=== PATIENT | male | born 1955 | race Caucasian/White ===

== ENCOUNTER → 2016-09-14 | Outpatient (CLI) | payer OTHER ==
[~2016-09-14] MED LIST: ACID REDUCER C1 EACH PO; ALBUTEROL0.09 MG/A2 INH; ALLOPURINOL300 MG PO; ASPIR LOW81 MG PO; BACTRIM DS 8001 TA1 PO; COUMADIN5 M1 PO; EC NAPROSYN500 MG PO; FERROUS SULFAT325 MG PO; FISH OIL500 MG PO; HYDROCODONE BIT1 T11 PO; IBUPROFEN800 MG PO; JANTOVEN5 MG PO; JANTOVEN6 M1 PO; LEVOFLOXACIN500 MG PO; LIPITOR10 MG PO; LISINOPRIL/HCTZ1 TA4 PO; LISINOPRIL10 M1 PO; METFORMIN HCL1000 MG PO; NATURE'S BLEND F1 MG PO; NEURONTIN300 MG PO; SIMVASTATIN40 MG PO; TRAD5TAB1 PO; VIBRAMYCIN100 MG PO; VICODIN 5-3001 EACH PO; VITAMIN B121000 MC2 PO; ZESTRIL10 MG PO; ZOFRAN ODT4 MG SL; ZYRTEC10 MG PO
== END | disposition home or self-care (01) ==
LOC: RAD 08:59
DX: M25.551 Pain in right hip (principal)

== ENCOUNTER → 2016-09-26 | Outpatient (CLI) | payer OTHER | END | disposition home or self-care (01) | LOC: CT 09:49 | DX: K57.30 Diverticulosis of large intestine without perforation or abscess without bleeding (principal); M12.88 Other specific arthropathies, not elsewhere classified, other specified site; M51.36 Other intervertebral disc degeneration, lumbar region; M47.896 Other spondylosis, lumbar region; Z96.642 Presence of left artificial hip joint; K42.9 Umbilical hernia without obstruction or gangrene ==

== ENCOUNTER → 2017-02-09 | Outpatient (CLI) | payer OTHER | END | disposition home or self-care (01) | LOC: CARD 12:43 | DX: R01.1 Cardiac murmur, unspecified (principal) ==

== ENCOUNTER → 2019-12-03 | Outpatient (CLI) | payer MEDICARE ==
[~2019-12-03] MED LIST changes: +CEFTRIAXONE2 GM IV; +LIPITOR20 MG PO; +MAPAP ARTHRITI650 MG PO; -METFORMIN HCL1000 MG PO; +METFORMIN HCL500 M3 PO; +MONTELUKAST SOD10 MG PO; +NIACIN TIME RE500 MG PO; +VANCO 1.751.75 GM/25 IV
== END | disposition home or self-care (01) ==
LOC: LAB 07:43
DX: S99.922A Unspecified injury of left foot, initial encounter (principal); X58.XXXA Exposure to other specified factors, initial encounter; Y93.89 Activity, other specified; Y92.89 Other specified places as the place of occurrence of the external cause; Y99.8 Other external cause status

== ENCOUNTER → 2019-12-04 | Outpatient (CLI) | payer MEDICARE | END | disposition home or self-care (01) | LOC: RAD 09:12 | DX: S99.922A Unspecified injury of left foot, initial encounter (principal); X58.XXXA Exposure to other specified factors, initial encounter; Y93.89 Activity, other specified; Y92.89 Other specified places as the place of occurrence of the external cause; Y99.8 Other external cause status ==

== ENCOUNTER → 2019-12-09 | Outpatient (CLI) | payer MEDICARE | END | disposition home or self-care (01) | LOC: US 08:21 | DX: I73.9 Peripheral vascular disease, unspecified (principal); I10 Essential (primary) hypertension; M79.606 Pain in leg, unspecified ==

== ENCOUNTER 2019-12-15 03:02 | Inpatient (IN) | payer MEDICARE ==
[~2019-12-15] VITALS: Ht 187.9 cm; Wt 111.7 kg
[~2019-12-15 03:02] MED LIST changes: -CEFTRIAXONE2 GM IV; -LIPITOR20 MG PO; -MAPAP ARTHRITI650 MG PO; -MONTELUKAST SOD10 MG PO; -NIACIN TIME RE500 MG PO; -VANCO 1.751.75 GM/25 IV
[2019-12-15 03:14] VITALS: BP 141/84
[2019-12-15 04:49] LABS: BASO # 0.1 10*3/uL (0.0-0.1); BASO % 0.6 % (0.0-1.0); EOS # 0.1 10*3/uL (0.0-0.4); EOS % 1.2 % (1.0-4.0); LYMPH % 12.2 % (27.0-41.0); MEAN CELL VOLUME 104.5 fl (80.0-94.0); MEAN CORPUSCULAR HGB 34.3 pg (27.0-31.0); MEAN CORPUSCULAR HGB CONC 32.9 g/dl (33.0-37.0); MEAN PLATELET VOLUME 8.2 fl (9.6-12.3); MONO # 0.9 10*3/uL (0.1-1.0); MONO % 10.5 % (3.0-9.0); NEUT # 6.2 10*3/uL (2.3-7.9); PLATELET COUNT AUTOMATED 240 10*3/uL (130-400); RED BLOOD COUNT 3.35 10*6/uL (4.50-5.90); RED CELL DISTRI WIDTH 12.6 % (0-14.5); WHITE BLOOD COUNT 8.3 10*3/uL (4.8-10.8)
[2019-12-15 04:59] LABS: ACT PARTIAL THROMBO TIME 47.1 SECONDS (20.0-32.1); INTERNATIONAL NORM RATIO 2.4 (2.0-3.5)
[2019-12-15 05:06] LABS: ALBUMIN 3.6 gm/dl (3.1-4.5); ALKALINE PHOSPHATASE 53 U/L (45-117); BUN 22 mg/dl (7-24); CHLORIDE 108 mmol/L (98-107); CREATININE 1.18 mg/dL (0.70-1.30); LIPASE 104 U/L (73-393); POTASSIUM 4.2 mmol/L (3.5-5.1); SGOT/AST 14 IU/L (3-35); SGPT/ALT 21 U/L (12-78); SODIUM 138 mmol/L (136-145); TROPONIN I < 0.015 ng/ml (<0.045)
[2019-12-15 05:47] LABS: BILIRUBIN NEGATIVE (NEGATIVE); BLOOD NEGATIVE (NEGATIVE); CLARITY CLEAR (CLEAR); COLOR YELLOW (YELLOW); GLUCOSE NEGATIVE (NEGATIVE); KETONE NEGATIVE (NEGATIVE); LEUKO ESTERASE NEGATIVE (NEGATIVE); NITRITE NEGATIVE (NEGATIVE); SPECIFIC GRAVITY 1.025 (1.005-1.030); UROBILINOGEN 0.2 E.U./dl (0.2-1.0); WBC 0-2 wbc/hpf (0-5)
[2019-12-15 06:15] VITALS: BP 140/82
[2019-12-15 08:00] VITALS: BP 146/82
[2019-12-15] MEDS ORDERED: MONTELUKAST SOD10 MG PO (11:28)
[2019-12-15] MEDS ORDERED: LIPITOR20 MG PO (11:29)
[2019-12-15] MEDS ORDERED: MAPAP ARTHRITI650 MG PO (11:31)
[2019-12-15] MEDS ORDERED: NIACIN TIME RE500 MG PO (11:49)
[2019-12-15 12:00] VITALS: BP 165/63
[2019-12-15 16:00] VITALS: BP 151/69
[2019-12-15 20:00] VITALS: BP 140/77
[2019-12-16] VITALS (9 sets, daily range): BP systolic 124–154; BP diastolic 60–82
[2019-12-16 07:02] LABS: BASO % 0.5 % (0.0-1.0); EOS # 0.1 10*3/uL (0.0-0.4); EOS % 2.3 % (1.0-4.0); HEMATOCRIT 33.2 % (42.0-52.0); LYMPH # 1.2 10*3/uL (1.3-4.4); LYMPH % 18.8 % (27.0-41.0); MEAN CELL VOLUME 101.8 fl (80.0-94.0); MEAN CORPUSCULAR HGB 33.7 pg (27.0-31.0); MEAN CORPUSCULAR HGB CONC 33.1 g/dl (33.0-37.0); MEAN PLATELET VOLUME 8.7 fl (9.6-12.3); MONO # 0.9 10*3/uL (0.1-1.0); MONO % 14.5 % (3.0-9.0); NEUT % 63.6 % (47.0-73.0); PLATELET COUNT AUTOMATED 228 10*3/uL (130-400); RED BLOOD COUNT 3.26 10*6/uL (4.50-5.90); RED CELL DISTRI WIDTH 12.2 % (0-14.5); WHITE BLOOD COUNT 6.2 10*3/uL (4.8-10.8)
[2019-12-16 07:32] LABS: ALBUMIN 3.2 gm/dl (3.1-4.5); ALKALINE PHOSPHATASE 48 U/L (45-117); BUN 17 mg/dl (7-24); CHLORIDE 110 mmol/L (98-107); CHOLESTEROL 85 mg/dL (<200); CREATININE 1.11 mg/dL (0.70-1.30); HDL CHOLESTEROL 38 mg/dl (40-60); LDL CHOLESTEROL 26 mg/dL (9-159); SGOT/AST 11 IU/L (3-35); SGPT/ALT 17 U/L (12-78); SODIUM 140 mmol/L (136-145); TOTAL PROTEIN 7.4 gm/dL (6.4-8.2); TRIGLYCERIDES 106 mg/dl (<150); VLDL CHOLESTEROL 21 mg/dL (6-40)
[2019-12-17] VITALS: BP 129/68
[2019-12-17 08:00] VITALS: BP 156/86
[2019-12-17 08:32] LABS: BASO % 0.6 % (0.0-1.0); EOS # 0.1 10*3/uL (0.0-0.4); EOS % 1.7 % (1.0-4.0); HEMATOCRIT 31.4 % (42.0-52.0); LYMPH # 1.1 10*3/uL (1.3-4.4); LYMPH % 14.6 % (27.0-41.0); MEAN CELL VOLUME 102.3 fl (80.0-94.0); MEAN CORPUSCULAR HGB 34.2 pg (27.0-31.0); MEAN CORPUSCULAR HGB CONC 33.4 g/dl (33.0-37.0); MEAN PLATELET VOLUME 8.7 fl (9.6-12.3); MONO # 0.9 10*3/uL (0.1-1.0); NEUT # 5.1 10*3/uL (2.3-7.9); NEUT % 70.8 % (47.0-73.0); PLATELET COUNT AUTOMATED 220 10*3/uL (130-400); RED BLOOD COUNT 3.07 10*6/uL (4.50-5.90); RED CELL DISTRI WIDTH 12.1 % (0-14.5); WHITE BLOOD COUNT 7.2 10*3/uL (4.8-10.8)
[2019-12-17 08:44] LABS: INTERNATIONAL NORM RATIO 2.3 (2.0-3.5)
[2019-12-17 08:47] LABS: ALKALINE PHOSPHATASE 44 U/L (45-117); BUN 14 mg/dl (7-24); CHLORIDE 108 mmol/L (98-107); CREATININE 0.92 mg/dL (0.70-1.30); POTASSIUM 3.7 mmol/L (3.5-5.1); SGOT/AST 7 IU/L (3-35); SGPT/ALT 16 U/L (12-78); SODIUM 138 mmol/L (136-145); TOTAL PROTEIN 7.4 gm/dL (6.4-8.2)
[2019-12-17 12:00] VITALS: BP 168/62
[2019-12-17 12:11] LABS: ACID FAST SPEC PROCESSING Tissue Grinding (.)
[2019-12-17 16:00] VITALS: BP 135/74
[2019-12-17 20:00] VITALS: BP 147/79
[2019-12-18] VITALS: BP 149/78
[2019-12-18 07:03] LABS: INTERNATIONAL NORM RATIO 2.2 (2.0-3.5)
[2019-12-18 08:00] VITALS: BP 146/78
[2019-12-18 12:00] VITALS: BP 140/72
[2019-12-18 16:00] VITALS: BP 143/51
[2019-12-18 20:00] VITALS: BP 110/71
[2019-12-19] VITALS: BP 130/49
[2019-12-19 06:26] LABS: BASO % 0.5 % (0.0-1.0); EOS # 0.2 10*3/uL (0.0-0.4); HEMATOCRIT 29.8 % (42.0-52.0); LYMPH # 1.2 10*3/uL (1.3-4.4); LYMPH % 15.5 % (27.0-41.0); MEAN CORPUSCULAR HGB 33.7 pg (27.0-31.0); MEAN CORPUSCULAR HGB CONC 34.2 g/dl (33.0-37.0); MEAN PLATELET VOLUME 8.9 fl (9.6-12.3); MONO # 0.8 10*3/uL (0.1-1.0); MONO % 9.9 % (3.0-9.0); NEUT # 5.4 10*3/uL (2.3-7.9); NEUT % 71.8 % (47.0-73.0); PLATELET COUNT AUTOMATED 242 10*3/uL (130-400); RED BLOOD COUNT 3.03 10*6/uL (4.50-5.90); RED CELL DISTRI WIDTH 11.8 % (0-14.5); WHITE BLOOD COUNT 7.5 10*3/uL (4.8-10.8)
[2019-12-19 06:27] LABS: INTERNATIONAL NORM RATIO 2.1 (2.0-3.5)
[2019-12-19 06:30] LABS: ALBUMIN 2.7 gm/dl (3.1-4.5); ALKALINE PHOSPHATASE 42 U/L (45-117); BUN 15 mg/dl (7-24); CHLORIDE 105 mmol/L (98-107); CREATININE 0.96 mg/dL (0.70-1.30); MEAN CELL VOLUME 98.3 fl (80.0-94.0); POTASSIUM 3.9 mmol/L (3.5-5.1); SGOT/AST 16 IU/L (3-35); SGPT/ALT 18 U/L (12-78); SODIUM 137 mmol/L (136-145); TOTAL PROTEIN 7.2 gm/dL (6.4-8.2)
[2019-12-19 08:00] VITALS: BP 130/83
[2019-12-19 12:00] VITALS: BP 118/88
[2019-12-19] MEDS ORDERED: CEFTRIAXONE2 GM IV (12:03)
[2019-12-19 16:00] VITALS: BP 192/82
[2019-12-19 20:00] VITALS: BP 145/86
[2019-12-20] VITALS: BP 122/69
[2019-12-20 06:58] LABS: INTERNATIONAL NORM RATIO 1.8 (2.0-3.5)
[2019-12-20 08:00] VITALS: BP 128/75
[2019-12-20] MEDS ORDERED: VANCO 1.751.75 GM/25 IV (11:24)
[2019-12-20 12:00] VITALS: BP 139/81
[2019-12-20 16:00] VITALS: BP 125/77
[2019-12-20 20:00] VITALS: BP 135/81
[2019-12-21] VITALS: BP 140/74
[2019-12-21 08:00] VITALS: BP 150/98
[2019-12-21 10:19] LABS: INTERNATIONAL NORM RATIO 1.9 (2.0-3.5)
== END 2019-12-21 12:40 | disposition other institution (70) | DRG 617 ==
LOC: ED 03:02 → EDHOLD 06:15 → 5E 06:15
PROVIDERS: Emergency Medicine Emergency Medical Services; Podiatrist Foot & Ankle Surgery; Registered Nurse; Student in an Organized Health Care Education/Training Program; ADMIT Internal Medicine
PROC: 0Y6S0Z3 Detachment at Left 2nd Toe, Low, Open Approach (ICD-10-PCS; principal; 2019-12-16)
PROC: 0HRMXK3 Replacement of Right Foot Skin with Nonautologous Tissue Substitute, Full Thickness, External Approach (ICD-10-PCS; principal; 2019-12-16)
PROC: 0JBQ0ZZ Excision of Right Foot Subcutaneous Tissue and Fascia, Open Approach (ICD-10-PCS; principal; 2019-12-16)
PROC: 02HV33Z Insertion of Infusion Device into Superior Vena Cava, Percutaneous Approach (ICD-10-PCS; 2019-12-19)
PROC: B548ZZA Ultrasonography of Superior Vena Cava, Guidance (ICD-10-PCS; 2019-12-19)
DX: E11.69 Type 2 diabetes mellitus with other specified complication (principal); D68.59 Other primary thrombophilia; M86.172 Other acute osteomyelitis, left ankle and foot; E44.0 Moderate protein-calorie malnutrition; R78.81 Bacteremia; E11.621 Type 2 diabetes mellitus with foot ulcer; I10 Essential (primary) hypertension; D53.9 Nutritional anemia, unspecified; E87.8 Other disorders of electrolyte and fluid balance, not elsewhere classified; E11.65 Type 2 diabetes mellitus with hyperglycemia; E11.42 Type 2 diabetes mellitus with diabetic polyneuropathy; E11.51 Type 2 diabetes mellitus with diabetic peripheral angiopathy without gangrene; B95.62 Methicillin resistant Staphylococcus aureus infection as the cause of diseases classified elsewhere; L97.519 Non-pressure chronic ulcer of other part of right foot with unspecified severity; Z79.84 Long term (current) use of oral hypoglycemic drugs; Z79.899 Other long term (current) drug therapy; Z96.642 Presence of left artificial hip joint; Z86.711 Personal history of pulmonary embolism; Z68.31 Body mass index [BMI] 31.0-31.9, adult; Z20.828 Contact with and (suspected) exposure to other viral communicable diseases

== ENCOUNTER → 2020-03-14 | Outpatient (CLI) | payer MEDICARE ==
[~2020-03-14] MED LIST changes: +CEFTRIAXONE2 GM IV; +LIPITOR20 MG PO; +MAPAP ARTHRITI650 MG PO; +MONTELUKAST SOD10 MG PO; +NIACIN TIME RE500 MG PO; +VANCO 1.751.75 GM/25 IV
== END | disposition home or self-care (01) ==
LOC: LAB 09:19
PROVIDERS: ATTEND Internal Medicine
DX: M86.171 Other acute osteomyelitis, right ankle and foot (principal)

== ENCOUNTER → 2020-04-11 | Outpatient (CLI) | payer MEDICARE | END | disposition home or self-care (01) | LOC: LAB 09:24 | PROVIDERS: ATTEND Internal Medicine | DX: M79.671 Pain in right foot (principal) ==

== ENCOUNTER 2021-04-30 17:45 | Emergency (ER) | payer MEDICARE ==
[2021-04-30 18:34] LABS: BASO # 0.1 10*3/uL (0.0-0.1); BASO % 1.1 % (0.0-1.0); EOS # 0.2 10*3/uL (0.0-0.4); EOS % 3.1 % (1.0-4.0); HEMATOCRIT 39.5 % (42.0-52.0); LYMPH # 1.5 10*3/uL (1.3-4.4); MEAN CELL VOLUME 103.1 fl (80.0-94.0); MEAN CORPUSCULAR HGB 33.9 pg (27.0-31.0); MEAN CORPUSCULAR HGB CONC 32.9 g/dl (33.0-37.0); MEAN PLATELET VOLUME 8.8 fl (9.6-12.3); MONO # 0.5 10*3/uL (0.1-1.0); MONO % 8.7 % (3.0-9.0); NEUT # 3.2 10*3/uL (2.3-7.9); NEUT % 59.9 % (47.0-73.0); PLATELET COUNT AUTOMATED 229 10*3/uL (130-400); RED BLOOD COUNT 3.83 10*6/uL (4.50-5.90); RED CELL DISTRI WIDTH 13.4 % (0-14.5); WHITE BLOOD COUNT 5.4 10*3/uL (4.8-10.8)
[2021-04-30 18:45] LABS: ACT PARTIAL THROMBO TIME 38.5 SECONDS (20.0-32.1); INTERNATIONAL NORM RATIO 2.6 (2.0-3.5)
[2021-04-30 19:02] LABS: ALBUMIN 4.3 gm/dl (3.1-4.5); ALKALINE PHOSPHATASE 72 U/L (45-117); BUN 24 mg/dl (7-24); CHLORIDE 108 mmol/L (98-107); CREATININE 1.37 mg/dL (0.70-1.30); LIPASE 158 U/L (73-393); POTASSIUM 4.1 mmol/L (3.5-5.1); SGOT/AST 24 IU/L (3-35); SGPT/ALT 34 U/L (12-78); SODIUM 141 mmol/L (136-145); TOTAL PROTEIN 8.2 gm/dL (6.4-8.2)
[2021-04-30 19:05] LABS: TROPONIN I < 0.015 ng/ml (<0.045)
[2021-04-30 21:11] LABS: BILIRUBIN Negative (Negative); BLOOD Negative (Negative); CLARITY Clear (Clear); COLOR Yellow (Yellow); GLUCOSE Negative (Negative); KETONE Trace (Negative); LEUKO ESTERASE Negative (Negative); NITRITE Negative (Negative); SPECIFIC GRAVITY 1.025 (1.001-1.030); UROBILINOGEN 0.2 E.U./dl (0.0-1.0)
[2021-04-30 21:28] LABS: BACTERIA TRACE; EPITHELIAL CELLS 0-2; RBC 0-2 rbc/hpf (0-2)
== END 2021-04-30 22:27 | disposition home or self-care (01) ==
LOC: ED 17:45
PROVIDERS: Emergency Medicine
DX: N23 Unspecified renal colic (principal); Z79.899 Other long term (current) drug therapy

== ENCOUNTER → 2021-05-08 | Outpatient (CLI) | payer MEDICARE | END | disposition home or self-care (01) | LOC: RAD 10:22 | PROVIDERS: ATTEND Internal Medicine | DX: M17.0 Bilateral primary osteoarthritis of knee (principal); I70.8 Atherosclerosis of other arteries; M79.89 Other specified soft tissue disorders; M25.762 Osteophyte, left knee; M25.761 Osteophyte, right knee ==

== ENCOUNTER → 2021-06-04 | Outpatient (CLI) | payer MEDICARE | END | disposition home or self-care (01) | LOC: COVID19 15:02 | PROVIDERS: ATTEND Podiatrist Foot & Ankle Surgery | DX: U07.1 COVID-19 (principal) ==

== ENCOUNTER 2021-06-12 08:19 | Emergency (ER) | payer MEDICARE ==
[~2021-06-12] VITALS: Ht 187.9 cm; Wt 115.7 kg
[2021-06-12 09:20] LABS: BASO % 0.2 % (0.0-1.0); EOS % 0.2 % (1.0-4.0); HEMATOCRIT 38.3 % (42.0-52.0); LYMPH # 0.7 10*3/uL (1.3-4.4); LYMPH % 12.5 % (27.0-41.0); MEAN CELL VOLUME 100.5 fl (80.0-94.0); MEAN CORPUSCULAR HGB 32.8 pg (27.0-31.0); MEAN CORPUSCULAR HGB CONC 32.6 g/dl (33.0-37.0); MEAN PLATELET VOLUME 8.9 fl (9.6-12.3); MONO # 0.4 10*3/uL (0.1-1.0); MONO % 5.9 % (3.0-9.0); NEUT # 4.8 10*3/uL (2.3-7.9); NEUT % 80.7 % (47.0-73.0); PLATELET COUNT AUTOMATED 270 10*3/uL (130-400); RED BLOOD COUNT 3.81 10*6/uL (4.50-5.90); WHITE BLOOD COUNT 5.9 10*3/uL (4.8-10.8)
[2021-06-12 09:32] LABS: ACT PARTIAL THROMBO TIME 54.9 SECONDS (20.0-32.1); INTERNATIONAL NORM RATIO 4.2 (2.0-3.5)
[2021-06-12 09:35] LABS: ALBUMIN 3.2 gm/dl (3.1-4.5); CREATININE 1.78 mg/dL (0.70-1.30); POTASSIUM 4.5 mmol/L (3.5-5.1); TOTAL PROTEIN 8.1 gm/dL (6.4-8.2)
[2021-06-12 12:21] LABS: BILIRUBIN Negative (Negative); BLOOD Negative (Negative); CLARITY Clear (Clear); COLOR Yellow (Yellow); GLUCOSE Negative (Negative); KETONE 1+ (Negative); LEUKO ESTERASE Negative (Negative); NITRITE Negative (Negative); PH 5.5 (4.5-8.0); SPECIFIC GRAVITY 1.025 (1.001-1.030); UROBILINOGEN 0.2 E.U./dl (0.0-1.0)
[2021-06-12 12:27] LABS: BACTERIA 2+
[2021-06-12 12:28] LABS: EPITHELIAL CELLS 0-2
== END 2021-06-12 12:55 | disposition home or self-care (01) ==
LOC: ED 08:19
PROVIDERS: Emergency Medicine
DX: U07.1 COVID-19 (principal); N17.9 Acute kidney failure, unspecified; E86.0 Dehydration; I10 Essential (primary) hypertension; E11.9 Type 2 diabetes mellitus without complications

== ENCOUNTER 2021-08-21 12:28 | Inpatient (IN) | payer MEDICARE ==
[~2021-08-21] VITALS: Ht 187.9 cm; Wt 117.9 kg
[2021-08-21 12:56] VITALS: BP 139/83
[2021-08-21 14:42] LABS: BASO # 0.1 10*3/uL (0.0-0.1); BASO % 0.6 % (0.0-1.0); EOS # 0.1 10*3/uL (0.0-0.4); EOS % 1.8 % (1.0-4.0); HEMATOCRIT 28.8 % (42.0-52.0); LYMPH # 1.1 10*3/uL (1.3-4.4); LYMPH % 14.3 % (27.0-41.0); MEAN CELL VOLUME 103.2 fl (80.0-94.0); MEAN CORPUSCULAR HGB 33.3 pg (27.0-31.0); MEAN CORPUSCULAR HGB CONC 32.3 g/dl (33.0-37.0); MEAN PLATELET VOLUME 8.4 fl (9.6-12.3); MONO # 0.7 10*3/uL (0.1-1.0); MONO % 8.7 % (3.0-9.0); NEUT # 5.8 10*3/uL (2.3-7.9); PLATELET COUNT AUTOMATED 391 10*3/uL (130-400); RED BLOOD COUNT 2.79 10*6/uL (4.50-5.90); RED CELL DISTRI WIDTH 14.3 % (0-14.5); WHITE BLOOD COUNT 7.8 10*3/uL (4.8-10.8)
[2021-08-21 14:58] LABS: ALKALINE PHOSPHATASE 58 U/L (45-117); BUN 30 mg/dl (7-24); CHLORIDE 107 mmol/L (98-107); CREATININE 1.09 mg/dL (0.70-1.30); POTASSIUM 4.1 mmol/L (3.5-5.1); SGOT/AST 13 IU/L (3-35); SGPT/ALT 18 U/L (12-78); SODIUM 138 mmol/L (136-145)
[2021-08-21 17:50] VITALS: BP 147/97
[2021-08-21] MEDS ORDERED: GLUCOTROL10 MG PO (17:59)
[2021-08-21 20:00] VITALS: BP 116/60
[2021-08-22] VITALS: BP 110/57
[2021-08-22 06:26] LABS: BASO % 0.8 % (0.0-1.0); EOS # 0.2 10*3/uL (0.0-0.4); EOS % 3.7 % (1.0-4.0); HEMATOCRIT 25.4 % (42.0-52.0); LYMPH # 0.8 10*3/uL (1.3-4.4); LYMPH % 15.9 % (27.0-41.0); MEAN CELL VOLUME 101.6 fl (80.0-94.0); MEAN CORPUSCULAR HGB 32.8 pg (27.0-31.0); MEAN CORPUSCULAR HGB CONC 32.3 g/dl (33.0-37.0); MEAN PLATELET VOLUME 8.6 fl (9.6-12.3); MONO # 0.5 10*3/uL (0.1-1.0); MONO % 8.9 % (3.0-9.0); NEUT # 3.6 10*3/uL (2.3-7.9); NEUT % 70.3 % (47.0-73.0); PLATELET COUNT AUTOMATED 356 10*3/uL (130-400); RED CELL DISTRI WIDTH 14.6 % (0-14.5); WHITE BLOOD COUNT 5.2 10*3/uL (4.8-10.8)
[2021-08-22 06:41] LABS: ALKALINE PHOSPHATASE 46 U/L (45-117); CHLORIDE 109 mmol/L (98-107); CHOLESTEROL 79 mg/dL (<200); CREATININE 0.96 mg/dL (0.70-1.30); LDL CHOLESTEROL 33 mg/dL (9-159); POTASSIUM 4.1 mmol/L (3.5-5.1); SGOT/AST 12 IU/L (3-35); SGPT/ALT 15 U/L (12-78); SODIUM 137 mmol/L (136-145); TOTAL PROTEIN 6.9 gm/dL (6.4-8.2); TRIGLYCERIDES 105 mg/dl (<150)
[2021-08-22 06:49] LABS: BUN 20 mg/dl (7-24)
[2021-08-22 08:00] VITALS: BP 125/76
[2021-08-22 12:00] VITALS: BP 128/77
[2021-08-22 16:00] VITALS: BP 118/67
[2021-08-22 20:00] VITALS: BP 139/83
[2021-08-23] VITALS: BP 100/57
[2021-08-23 06:23] LABS: BASO % 0.6 % (0.0-1.0); EOS # 0.2 10*3/uL (0.0-0.4); EOS % 3.2 % (1.0-4.0); HEMATOCRIT 28.5 % (42.0-52.0); LYMPH # 1.2 10*3/uL (1.3-4.4); MEAN CELL VOLUME 101.1 fl (80.0-94.0); MEAN CORPUSCULAR HGB 32.6 pg (27.0-31.0); MEAN CORPUSCULAR HGB CONC 32.3 g/dl (33.0-37.0); MEAN PLATELET VOLUME 8.4 fl (9.6-12.3); MONO # 0.6 10*3/uL (0.1-1.0); MONO % 8.6 % (3.0-9.0); NEUT # 4.5 10*3/uL (2.3-7.9); NEUT % 68.1 % (47.0-73.0); PLATELET COUNT AUTOMATED 422 10*3/uL (130-400); RED BLOOD COUNT 2.82 10*6/uL (4.50-5.90); RED CELL DISTRI WIDTH 14.1 % (0-14.5); WHITE BLOOD COUNT 6.5 10*3/uL (4.8-10.8)
[2021-08-23 06:38] LABS: ALKALINE PHOSPHATASE 57 U/L (45-117); BUN 18 mg/dl (7-24); CHLORIDE 106 mmol/L (98-107); CREATININE 1.01 mg/dL (0.70-1.30); POTASSIUM 4.2 mmol/L (3.5-5.1); SGOT/AST 13 IU/L (3-35); SGPT/ALT 17 U/L (12-78); SODIUM 136 mmol/L (136-145); TOTAL PROTEIN 7.7 gm/dL (6.4-8.2)
[2021-08-23 08:00] VITALS: BP 131/84
[2021-08-23 12:00] VITALS: BP 133/76
[2021-08-23 16:00] VITALS: BP 127/74
[2021-08-23 20:00] VITALS: BP 118/69
[2021-08-24] VITALS: BP 106/65
[2021-08-24 06:06] LABS: BUN 20 mg/dl (7-24); CHLORIDE 104 mmol/L (98-107); CREATININE 1.03 mg/dL (0.70-1.30); POTASSIUM 3.8 mmol/L (3.5-5.1); SODIUM 135 mmol/L (136-145)
[2021-08-24 06:07] LABS: BASO # 0.1 10*3/uL (0.0-0.1); BASO % 0.7 % (0.0-1.0); EOS # 0.2 10*3/uL (0.0-0.4); EOS % 2.2 % (1.0-4.0); HEMATOCRIT 30.6 % (42.0-52.0); LYMPH # 1.4 10*3/uL (1.3-4.4); LYMPH % 16.8 % (27.0-41.0); MEAN CELL VOLUME 101.7 fl (80.0-94.0); MEAN CORPUSCULAR HGB 32.2 pg (27.0-31.0); MEAN CORPUSCULAR HGB CONC 31.7 g/dl (33.0-37.0); MEAN PLATELET VOLUME 8.7 fl (9.6-12.3); MONO # 0.7 10*3/uL (0.1-1.0); MONO % 8.2 % (3.0-9.0); NEUT # 6.1 10*3/uL (2.3-7.9); NEUT % 71.7 % (47.0-73.0); PLATELET COUNT AUTOMATED 508 10*3/uL (130-400); RED BLOOD COUNT 3.01 10*6/uL (4.50-5.90); RED CELL DISTRI WIDTH 14.4 % (0-14.5); WHITE BLOOD COUNT 8.5 10*3/uL (4.8-10.8)
[2021-08-24 08:00] VITALS: BP 134/64
[2021-08-24] MEDS ORDERED: AUGMENTIN 875-875 MG PO (10:32)
== END 2021-08-24 13:00 | disposition home or self-care (01) | DRG 603 ==
LOC: ED 12:28 → EDHOLD 17:23 → 4E 17:23
PROVIDERS: Family Medicine; Hospitalist; Internal Medicine; Physician Assistant; ADMIT Internal Medicine; ATTEND Internal Medicine
DX: L03.115 Cellulitis of right lower limb (principal); L97.519 Non-pressure chronic ulcer of other part of right foot with unspecified severity; I73.9 Peripheral vascular disease, unspecified; E11.621 Type 2 diabetes mellitus with foot ulcer; E78.00 Pure hypercholesterolemia, unspecified; I10 Essential (primary) hypertension; E11.51 Type 2 diabetes mellitus with diabetic peripheral angiopathy without gangrene; E11.42 Type 2 diabetes mellitus with diabetic polyneuropathy; Z79.1 Long term (current) use of non-steroidal anti-inflammatories (NSAID); Z86.711 Personal history of pulmonary embolism; Z79.899 Other long term (current) drug therapy; L85.9 Epidermal thickening, unspecified; Z79.01 Long term (current) use of anticoagulants

== ENCOUNTER → 2021-11-23 | Outpatient (CLI) | payer MEDICARE ==
[~2021-11-23] MED LIST changes: +AUGMENTIN 875-875 MG PO; +GLUCOTROL10 MG PO
== END | disposition home or self-care (01) ==
LOC: CARD 11:54
PROVIDERS: ATTEND Internal Medicine
DX: I35.1 Nonrheumatic aortic (valve) insufficiency (principal); I35.0 Nonrheumatic aortic (valve) stenosis

== ENCOUNTER → 2022-03-16 | Outpatient (CLI) | payer MEDICARE ==
[~2022-03-16] MED LIST changes: +ASPIRIN ADULT L81 M1 PO; +PLAVIX75 M1 PO; +SINGULAIR10 M1 PO
== END | disposition home or self-care (01) ==
LOC: CARD 02:24
PROVIDERS: ATTEND Internal Medicine Cardiovascular Disease
DX: I35.0 Nonrheumatic aortic (valve) stenosis (principal); I10 Essential (primary) hypertension; Z86.711 Personal history of pulmonary embolism; E11.9 Type 2 diabetes mellitus without complications; I73.9 Peripheral vascular disease, unspecified

== ENCOUNTER → 2024-09-30 | Outpatient (CLI) | payer MEDICARE ==
[~2024-09-30] MED LIST changes: +PERFLUTREN PROTEIN-A MICROSPHR 3 ML VIAL IV ONE
== END | disposition home or self-care (01) ==
LOC: CARD 10:04
PROVIDERS: ATTEND Nurse Practitioner Family
DX: I08.0 Rheumatic disorders of both mitral and aortic valves (principal); R01.1 Cardiac murmur, unspecified